=== PATIENT | male | born 1945 | race Two or more races ===

== ENCOUNTER 2019-02-16 11:09 | Emergency (ER) | payer MEDICAID, MEDICARE, OTHER ==
[2019-02-16] MEDS ORDERED: Lactated Ringers 1,000 ML IV ONE (11:37)
[2019-02-16] MEDS ORDERED: Sodium Chloride 0.9% 1,000 ML IV ONE (11:49)
--- NOTE | 2019-02-16 22:14 | EDM.PDOC ---
ED HPI GENERAL MEDICAL PROBLEM - General Chief Complaint: Medication Administration Stated Complaint: dehydration Time Seen by Provider: 02/16/19 11:09 Source of Information: Reports: Patient History Limitations: Reports: No Limitations - History of Present Illness INITIAL COMMENTS - FREE TEXT/NARRATIVE: Pt. presents to ER with complaints of mild dehydration and requests IV fluids. Pt. states that he has a history of metastatic colon CA and has an ileostomy and sounds as though he has some dumping syndrome, requiring intermittent IV fluids. [place]. Denies any fever or chills. No chest pain or shortness of breath. Deniesa any abdominal pain. Denies any bloody stool. No abdominal pain, nausea or vomiting. He states that he is usually more dehydrated when he gets fluids, but will be travelling the next 2 days and would like to have some before he leaves a town with a hospital. Onset: Today Associated Symptoms: Reports: Other (diarrhea, chronic in nature). Denies: Fever/Chills - Related Data Allergies Allergy/AdvReac Type Severity Reaction Status Date / Time hydrocodone [From [facility]] Allergy Mild Other Verified 02/16/19 12:04 acetaminophen [From [facility]] Allergy Other Verified 02/16/19 12:04 Home Meds: Home Meds Capecitabine 1 tab PO ASDIRECTED 02/16/19 [History] Dicyclomine [Bentyl] 1 tab PO BID PRN 02/16/19 [History] Lidocaine/Prilocaine [[facility]] 1 appful TOP ASDIRECTED PRN 02/16/19 [History] oxyCODONE 1 - 2 tab PO Q6H PRN 02/16/19 [History] oxyCODONE HCl [Oxycontin] 1 tab PO BID 02/16/19 [History] Past Medical History Oncologic (Cancer) History: Reports: Colon 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 ED EXAM, GENERAL - Physical Exam Exam: See Below Exam Limited By: No Limitations General Appearance: Alert, WD/WN, No Apparent Distress Nose: Normal Inspection, Normal Mucosa, No Blood Throat/Mouth: Normal Inspection, Normal Lips, Normal Teeth, Normal Gums, Normal Oropharynx, Normal Voice, No Airway Compromise Head: Atraumatic, Normocephalic Neck: Normal Inspection, Supple, Non-Tender, Full Range of Motion Respiratory/Chest: No Respiratory Distress, Lungs Clear, Normal Breath Sounds, No Accessory Muscle Use, Chest Non-Tender, Other (port-a-cath noted) Cardiovascular: Normal Peripheral Pulses, Regular Rate, Rhythm, No Edema, No Murmur GI/Abdominal: Soft, Non-Tender, No Organomegaly, No Distention, Other ( ileostomy ) Course - Vital Signs Last Recorded V/S: Last Vital Signs Temp 36.3 C 02/16/19 11:52 Pulse 77 02/16/19 11:52 Resp 12 02/16/19 11:52 BP 93/65 02/16/19 11:52 Pulse Ox 99 02/16/19 11:52 - Orders/Labs/Meds Orders: Active Orders 24 hr Category Date Time Status Implanted Port Access [RC] ASDIRECTED Care 02/16/19 11:36 Active Meds: Medications Discontinued Medications Generic Name Dose Route Start Last Admin Trade Name Freq PRN Reason Stop Dose Admin Heparin Sodium (Porcine) Confirm 02/16/19 13:03 02/16/19 13:02 Heparin Lock Flush 100 Units/Ml Administered 02/16/19 13:04 500 units Dose Administration 500 units .ROUTE .STK-MED ONE Lactated Ringer's 1,000 mls @ 1,000 mls/hr 02/16/19 11:37 02/16/19 13:24 Ringers, Lactated IV 02/16/19 12:36 Not Given ONETIME ONE Sodium Chloride 1,000 mls @ 1,000 mls/hr 02/16/19 11:49 02/16/19 11:49 Normal Saline IV 02/16/19 12:48 1,000 mls/hr .BOLUS ONE Administration Departure - Departure Time of Disposition: 13:08 Disposition: Home, Self-Care 01 Condition: Good Clinical Impression: Diarrhea - Discharge Information Instructions: Dehydration, Adult, [id number] Referrals: PCP,Not In Area [Primary Care Provider] - Forms: ED Department Discharge Additional Instructions: Follow-up with PCP/oncologist as needed. Drink plenty of fluids. Return to ER if you have any chest pain, weakness, fever, chills, shortness of breath, or lightheadedness. - My Orders Last 24 Hours: My Active Orders 02/16/19 11:36 Implanted Port Access [RC] ASDIRECTED - Assessment/Plan Last 24 Hours: My Active Orders 02/16/19 11:36 Implanted Port Access [RC] ASDIRECTED Plan: Pt. is travelling to see his son whose is expecting a baby any day. Advised the patient to pay attention to his symptoms and seek treatment if he is continuing to become dehydrated. Follow-up with PCP/oncologist as needed. Drink plenty of fluids. Return to ER if you have any chest pain, weakness, fever, chills, shortness of breath, or lightheadedness.
== END 2019-02-16 13:08 | disposition home or self-care (01) ==
LOC: VM.ED 11:09
DX: R19.7 Diarrhea, unspecified (principal); Z85.038 Personal history of other malignant neoplasm of large intestine; Z88.5 Allergy status to narcotic agent
CPT/HCPCS: 96365; 99283; J1642; J7030